=== PATIENT | female | born 1960 | race Caucasian/White ===

== ENCOUNTER 2020-10-21 13:44 | Emergency (ER) | payer OTHER ==
[~2020-10-21] VITALS: Ht 160 cm; Wt 95.3 kg
[2020-10-21] MEDS ORDERED: NORVASC10 MG PO (13:58)
[2020-10-21] MEDS ORDERED: HYDROXYZINE HCL50 MG PO (13:58)
[2020-10-21] MEDS ORDERED: TRAZODONE HCL50 MG PO (13:58)
[2020-10-21] MEDS ORDERED: ZOCOR 20 MG TAB20 M1 PO (13:59)
[2020-10-21] MEDS ORDERED: VICTOZA0.6 MG/0.1 SUBQ (14:00)
[2020-10-21] MEDS ORDERED: LANTUS SUBQ (14:00)
[2020-10-21] MEDS ORDERED: PROZAC10 M1 PO (14:01)
[2020-10-21] MEDS ORDERED: NOVOLOG100 UNIT/M SUBQ (14:01)
[2020-10-21 14:20] LABS: URINE BLOOD NEGATIVE (Negative); URINE CLARITY CLEAR; URINE COLOR YELLOW; URINE GLUCOSE-RANDOM 3+ (Negative); URINE KETONES 2+ (Negative); URINE LEUKOCYTES-REFLEX NEGATIVE (Negative); URINE NITRITE-REFLEX NEGATIVE (Negative); URINE PROTEIN TRACE (Negative); URINE SPECIFIC GRAVITY 1.025 (1.005-1.030); URINE UROBILINOGEN 0.2 E.U./dl (0.2-1.0)
[2020-10-21 14:21] LABS: ABSOLUTE LYMPHOCYTES 1.4 thou/uL (0.8-5.3); ABSOLUTE MONOCYTES 0.9 thou/uL (0.0-1.2); ABSOLUTE NEUTROPHILS 10.2 thou/uL (1.6-8.1); BASOPHILS 0.3 %; EOSINOPHILS 0.1 %; HEMATOCRIT 48.2 % (37.0-47.0); HEMOGLOBIN 15.9 gm/dL (12.0-15.0); MCH 29.9 pg (26.0-34.0); MCV 90.6 fL (80.0-100.0); MONOCYTES 7.2 %; MPV 9.8 fl. (7.2-11.1); NUCLEATED RBCS 0 /100WBC; PLATELET COUNT* 375 thou/uL (150-400); POLYS 81.4 %; RBC 5.32 mil/uL (4.20-5.00); WBC 12.5 thou/uL (4.0-11.0)
[2020-10-21 14:24] LABS: URINE BILIRUBIN 1+ (Negative)
[2020-10-21 14:25] LABS: ICTOTEST (BILI CONFIRMATORY) Negative (Negative)
[2020-10-21 14:29] LABS: CALCIUM 10.5 mg/dL (8.5-10.1); CREATININE 1.9 mg/dL (0.6-1.3); POTASSIUM 3.8 mmol/L (3.5-5.1)
[2020-10-21 14:33] LABS: ALBUMIN 4.6 g/dL (3.4-5.0); TOTAL BILIRUBIN 0.9 mg/dL (<0.1-1.0); TOTAL PROTEIN 8.9 g/dL (6.4-8.2)
[2020-10-21] MEDS ORDERED: ZOFRAN ODT4 MG SUBLING ×3 (14:35→14:49)
[2020-10-21] MEDS ORDERED: HYDROCODON-ACE1 EAC7 PO ×3 (14:35→14:56)
[2020-10-21 14:36] LABS: BACTERIA-REFLEX 1-9 Few /HPF (None Seen); HYALINE CASTS 0-3 Few /LPF (None Seen); SQUAMOUS >10 Many /LPF (0-3); URINE RBC 0-2 Rare /HPF (0-2); URINE WBC-REFLEX 0-5 Rare /HPF (0-5)
[2020-10-21 14:48] LABS: CRYSTALS None Seen /LPF (None Seen)
[2020-10-21] MEDS ORDERED: ZOFRAN ODT4 MG DISSOLVE (14:52)
[2020-10-21] MEDS ORDERED: ONDANSETRON HCL4 M2 PO (14:54)
[2020-10-21 14:55] LABS: MUCUS 0-3 Light strn/LPF (None Seen)
[2020-10-21 16:00] VITALS: BP 123/60
== END 2020-10-21 16:01 | disposition home or self-care (01) ==
LOC: M.ERS 13:44
PROVIDERS: Family Medicine
DX: R11.2 Nausea with vomiting, unspecified (principal); Z20.822 Contact with and (suspected) exposure to COVID-19; Z88.0 Allergy status to penicillin

== ENCOUNTER → 2020-11-17 | Outpatient (CLI) | payer OTHER ==
[~2020-11-17] MED LIST: HYDROCODON-ACE1 EAC7 PO; HYDROXYZINE HCL50 MG PO; LANTUS SUBQ; NORVASC10 MG PO; NOVOLOG100 UNIT/M SUBQ; ONDANSETRON HCL4 M2 PO; PROZAC10 M1 PO; TRAZODONE HCL50 MG PO; VICTOZA0.6 MG/0.1 SUBQ; ZOCOR 20 MG TAB20 M1 PO; ZOFRAN ODT4 MG DISSOLVE; ZOFRAN ODT4 MG SUBLING
[2020-11-17 15:28] LABS: CALCIUM 9.3 mg/dL (8.5-10.1); CREATININE 1.3 mg/dL (0.6-1.3); POTASSIUM 4.1 mmol/L (3.5-5.1)
== END ==
LOC: M.LAB 14:50
PROVIDERS: ATTEND Registered Nurse
DX: I10 Essential (primary) hypertension (principal)